=== PATIENT | female | born 1940 | race Caucasian/White ===

== ENCOUNTER 2018-09-02 10:24 | Emergency (ER) | payer MEDICARE ==
[~2018-09-02] VITALS: Ht 170.2 cm; Wt 63.6 kg
[2018-09-02 10:55] VITALS: BP 130/60; PULSE 74; RESP 18; Ht 170.2 cm; Wt 63.6 kg
--- NOTE | 2018-09-02 11:43 | ERD ---
ER Documentation Chief Complaint Chief Complaint right ankle pain & swelling s/p twisted on carpet HPI 78-year-old female presents with complaint of right ankle pain after incurring a fall yesterday. States that she slipped on a piece of carpet. Denies any preceding symptoms such as dizziness, chest pain, palpitations, shortness of breath, syncope. Denies hitting her head. unable to ambulate. Denies numbness or tingling. History of pancreatic cancer. Numerous medications. Denies allergies. ROS All systems reviewed and are negative except as per history of present illness. Medications Home Meds Active Scripts Ibuprofen* (Motrin*) 400 Mg Tab, 400 MG PO Q6 for pain, #30 TAB Prov:CJ GUARDADO 09/02/18 Allergies Allergies: Coded Allergies: No Known Allergy (Unverified , 09/02/18) FmHx Family History: No diabetes, No coronary disease, No other Physical Exam Vitals Vital Signs Date Temp Pulse Resp B/P (MAP) Pulse Ox O2 O2 Flow FiO2 Time Delivery Rate 09/02/18 98.4 74 18 130/60 99 10:55 (83) Physical Exam Const: No acute distress Head: Atraumatic Eyes: Normal Conjunctiva ENT: Normal External Ears, Nose and Mouth. Neck: Full range of motion. No meningismus. Resp: Clear to auscultation bilaterally Cardio: Regular rate and rhythm, no murmurs Skin: No petechiae or rashes Back: No midline or flank tenderness Right lower extremity: Tenderness to palpation over the anterior and posterior aspect of the lateral malleolus with some edema. No erythema, bony deformity, or ecchymosis noted. Overlying skin is intact. In addition there is some tenderness to palpation over the anterior aspect of the lower fibula. There is no edema, ecchymosis, erythema noted. No bony deformity noted. Overlying skin is intact. Compartments are soft and warm. There is no pallor or cyanosis. Range of motion, distal pulses, and distal sensation is intact. There is normal cap refill. Neur: Awake and alert Psych: Normal Mood and Affect Procedures/MDM DIAGNOSTIC IMAGING REPORT Patient: NAJMA CAMEJO : 1940 Age: 78 Sex: F MR #: [id number] DOS: 09/02/18 1137 Ordering MD: CJ GUARDADO Location: [facility] Room/Bed: PROCEDURE: XR tibia and fibula. CLINICAL INDICATION: Leg pain. TECHNIQUE: Two views of the right tibia and fibula were obtained. COMPARISON: None. FINDINGS: Osseous structures are intact. There is no acute fracture. There is no focal soft tissue abnormality. IMPRESSION: 1. No acute osseous abnormality. RPTAT: AAEE Marilou Brennan, Physician Date Time Electronically viewed and signed by Marilou Brennan Physician on 09/02/2018 12 :35 RF/ CC: CJ GUARDADO [id number] DIAGNOSTIC IMAGING REPORT Patient: NAJMA CAMEJO : 1940 Age: 78 Sex: F MR #: [id number] DOS: 09/02/18 1137 Ordering MD: CJ GUARDADO Location: [facility] Room/Bed: PROCEDURE: XR right foot. CLINICAL INDICATION: Pain. TECHNIQUE: Three views of the right foot were obtained. COMPARISON: None. FINDINGS: There is no acute fracture or dislocation. Osseous structures are intact. There are mild degenerative changes at the midfoot. Plantar calcaneal spur is present. There is no soft tissue swelling. IMPRESSION: 1. No acute osseous abnormality. 2. Plantar calcaneal spur. RPTAT: AAEE Marilou Brennan Physician Date Time Electronically viewed and signed by Marilou Brennan Physician on 09/02/2018 12:32 RF/ CC: CJ GUARDADO [id number] DIAGNOSTIC IMAGING REPORT Patient: NAJMA CAMEJO : 1940 Age: 78 Sex: F MR #: [id number] DOS: 09/02/18 1137 Ordering MD: CJ GUARDADO Location: [facility] Room/Bed: PROCEDURE: XR right ankle. CLINICAL INDICATION: Ankle pain. TECHNIQUE: Three views of the ankle were obtained. COMPARISON: None. FINDINGS: There is no acute fracture or dislocation. Joint spaces are maintained. Plantar calcaneal spur is present. The bone mineralization is decreased. There is soft tissue swelling of the ankle. IMPRESSION: 1. No acute osseous abnormality. 2. Plantar calcaneal spur. 3. Soft tissue swelling of the ankle. RPTAT: AAEE Marilou Brennan Physician Date Time Electronically viewed and signed by Marilou Brennan Physician on 09/02/2018 12:33 RF/ CC: CJ GUARDADO [id number] 78-year-old female presents with complaint of right ankle pain after incurring a fall yesterday. States that she slipped on a piece of carpet. Denies any preceding symptoms such as dizziness, chest pain, palpitations, shortness of breath, syncope. Denies hitting her head. unable to ambulate. Denies numbness or tingling. History of pancreatic cancer. Numerous medications. Denies allergies. X-rays were all within normal limits. Patient's presentation is consistent with ankle sprain. Patient given ice pack and crutches and Orth O boot in the ED. patient also advised to follow-up with orthopedist. Referral given in the packet. Patient given Rx for ibuprofen 400 mg. I have low suspicion for neurovascular compromise, compartment syndrome, fracture, osteomyelitis, septic joint, or other emergent condition. Patient discharged with strict ER precautions. Patient advised to follow up with PMD. All questions answered at discharge. Departure Diagnosis: Primary Impression: Ankle injury Encounter type: initial encounter Laterality: right Qualified Codes: S99.911A - Unspecified injury of right ankle, initial encounter Additional Impression: Sprain and strain of ankle Condition: Stable CJ GUARDADO Sep 02, 2018 11:43
[2018-09-02] MEDS ORDERED: IBUP-1561 PO (11:57)
== END 2018-09-02 13:15 | disposition home or self-care (01) ==
LOC: FTE 10:24
DX: S96.911A Strain of unspecified muscle and tendon at ankle and foot level, right foot, initial encounter (principal); W01.0XXA Fall on same level from slipping, tripping and stumbling without subsequent striking against object, initial encounter; Y92.9 Unspecified place or not applicable
CPT/HCPCS: 73590; 73630